=== PATIENT | female | born 1965 | race Caucasian/White ===

== ENCOUNTER → 2021-03-28 | Outpatient (CLI) | payer BC | LOC: M.LAB 16:20 | PROVIDERS: ATTEND Podiatrist Foot Surgery | DX: Z01.812 Encounter for preprocedural laboratory examination (principal); Z20.822 Contact with and (suspected) exposure to COVID-19 ==

== ENCOUNTER → 2021-04-04 | Outpatient (CLI) | payer BC | LOC: M.LAB 07:21 | PROVIDERS: ATTEND Internal Medicine Gastroenterology | DX: Z01.812 Encounter for preprocedural laboratory examination (principal); Z20.822 Contact with and (suspected) exposure to COVID-19 ==

== ENCOUNTER → 2021-04-25 | Outpatient (CLI) | payer BC | LOC: M.LAB 07:23 | PROVIDERS: ATTEND Podiatrist Foot Surgery | DX: Z01.812 Encounter for preprocedural laboratory examination (principal); Z20.822 Contact with and (suspected) exposure to COVID-19 ==